=== PATIENT | female | born 2000 | race Caucasian/White ===

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

== ENCOUNTER 2023-01-08 19:03 | Observation (INO) | payer MEDICAID, SELFPAY ==
[2023-01-08] VITALS (13 sets, daily range): BP systolic 87–108; BP diastolic 44–63; PULSE 61–112; RESP 16–18; TEMP 36.1–36.7; O2SAT 98–100; BMI 23.4; BMI 24.3
[2023-01-08] MEDS: 0.9% Normal Saline 1,000 ML 999 ML IV ×2 (19:24→20:42)
[2023-01-08 19:36] LABS: Hematocrit 30.3 % (37-47); Hemoglobin 10.4 g/dL (12.0-15.0); Mean Corp Hgb Conc 34.3 g/dL (32-36); Mean Corpuscular Hgb 29.5 pg (27.0-32.0); Mean Corpuscular Volume 86.1 fL (81-99); Mean Platelet Vol. 10.3 fl (6.2-12.0); Platelet Count 237 K/mm3 (150-450); RBC Distribution Width CV 12.4 % (11.6-14.6); RBC Distribution Width SD 38.6 fl (35.1-43.9); Red Blood Count 3.52 M/mm3 (4.2-5.4); White Blood Count 13.9 K/mm3 (4.4-11.0)
--- NOTE | 2023-01-08 20:06 | ED.VIS.FEGU ---
HPI HPI - Female History of Present Illness Chief Complaint: Vag Bld, Preg Narrative Narrative: Patient was found to have a miscarriage, she was about 10 weeks , she was given Cytotec by OB, she took her first dose around 11 AM and has been bleeding since, its now been 8 to 9 hours. She has significant heavy bleeding. She was feeling a pad every 5 minutes. She now has a towel in place. She has minimal abdominal pain. She does feel lightheaded especially when she stands up this is her first . [facility] Medical History Non-smoker Substance abuse Home Medications hydroxyzine HCl 25 mg tablet 25 mg PO TID PRN anxiety or palpitations #20 tabs 09/24/21 [Rx Last Taken Unknown] Allergy/AdvReac Type Severity Reaction Status Date / Time amoxicillin AdvReac Rash Verified 01/08/23 19:07 Penicillins [PCN] AdvReac Rash Verified 01/08/23 19:07 Social History Smoking Status: Current every day smoker tobacco type: e-cigarettes ROS ROS ED ROS Narrative Past medical history: Reviewed Medications: Reviewed Social history: Noncontributory Review of systems: All systems negative except as indicated General: No fever. She does feel lightheaded Cardiovascular: No chest pain Respiratory: No shortness of breath or cough Gastrointestinal: Minimal suprapubic pain Genitourinary: Vaginal bleeding as in HPI Musculoskeletal: Denies myalgias no difficulty with ambulation Skin: No rash Hematologic: No easy bleeding or easy bruising EXAM Physical Exam Narrative Exam Narrative: Physical exam General: Patient is lying in bed. She does not appear in distress she does appear somewhat anxious Head: Normocephalic, Atraumatic Eyes: Conjunctiva slightly pale Neck: Supple, Nontender, No lymphadenopathy Cardiovascular: Regular rate, Regular rhythm Respiratory: No distress, CTA bilaterally Abdomen: Soft, minimal suprapubic pain. : Patient has quite a bit of vaginal bleed she has massive clots even after eliminating all the clots and blood from the vault she has very brisk pooling Back: Nontender, Normal Inspection. Negative for: CVA tenderness Skin: Somewhat pale Const Vital Signs: 01/08/23 19:04 Temperature 98.0 F Temperature Source Temporal Pulse Rate 112 H Respiratory Rate 18 Blood Pressure 99/57 L Blood Pressure Mean 71 Pulse Ox 98 Oxygen Delivery Method Room Air MDM MDM MDM Narrative Medical decision making narrative: Patient continues to bleed quite briskly, hemoglobin is 10.4 but I believe this is lower we will repeat it. She is pale and has borderline hypotension and tachycardia I am worried about early hemorrhagic shock. I talked to ASSEMBLY MACHINE FEEDER patient will be transfused and taken to the operating room for D&C. I talked to her cousin who is in the room giving some history. At this time there is no need for imaging, there is an outpatient ultrasound which showed demise. No need for RhoGAM she has a positive. Lab Data Labs: Laboratory Results - last 24 hr 01/08/23 01/08/23 19:26 19:26 WBC 13.9 H RBC 3.52 L Hgb 10.4 L Hct 30.3 L MCV 86.1 MCH 29.5 MCHC 34.3 RDW Std Deviation 38.6 RDW Coeff of Shemar 12.4 Plt Count 237 MPV 10.3 Blood Type A POSITIVE Antibody Screen NEGATIVE Critical Care Time Critical care time (excluding procedures): 30-74 minutes (Critical care time of 30 minutes. Patient is having hemorrhagic shock, blood products and fluids and frequent monitor), Discussing w/Patient &/or Family/Chief Psychologist, Discussing w/Consultants, Arranging Admission or Transfer and Performing Direct Patient Care at Bedside Discharge Plan Dx/Rx/DC Orders Clinical Impression: Vaginal bleeding, Hypovolemic shock, Miscarriage Disposition Disposition: Acute Care Hospital [facility]
[2023-01-08 20:37] LABS: Hematocrit 25.7 % (37-47); Hemoglobin 8.6 g/dL (12.0-15.0)
--- NOTE | 2023-01-08 21:11 | HP.PCM.OB_ITS ---
History and Physical Date of Admission: 01/08/23 Chief complaint: Vaginal bleeding History present illness: 22-year-old arrives to ER with heavy vaginal bleeding after taking Cytotec at home today. Patient feels weakness and dizziness, feels like she is going to pass out. Denies chest pain, shortness of breath. Obstetric history: G1: Current SAB Past medical history: None Medications: None Allergies: Penicillin, amoxicillin Past surgical history: None Family history: Denies his DVT or PE Review of systems: Besides above pertinent positives a full review of systems was performed and found to be negative Physical exam: Vitals: Blood pressure 92/49 pulse 71 respiratory rate 18 temperature 98 Fahrenheit SPO2 100% on nonrebreather mask 15 L/min General: Pale, appears weak HEENT: Normocephalic/atraumatic no cervical of adenopathy Cardiac/respiratory: No successor muscles, nonlabored breathing Abdomen: Soft, nontender, nondistended Pelvic exam: Patient's pad with large clot on pad Extremities: No peripheral edema Psych: Normal affect and remainder nonpressured speech Labs: White blood cell count 13.9, initial hemoglobin 10.4 repeat check in 1 hour later 8.6. Blood type a positive antibody negative Assessment and plan: 22-year-old called by ER physician with heavy bleeding at home after taking Cytotec at 11 AM this morning for SAB, with 1 pad every 10 to 15 minutes. Exam by ER physician noted to have copious amounts of active bleeding. Instructed ER physician to order 2 units packed red blood cells to be transfused now and continue IV fluid hydration. I called nursing cement or concrete finishing supervisor informed me that anesthesia and surgical team currently in OR with major case, nursing cement or concrete finishing supervisor connected me with anesthesia discussed case with anesthesia and informed them that I will be arriving to the ER for evaluation but findings with acute blood loss anemia and discussed patient's status and need for OR. Anesthesia with emergent case in the OR just started in with in labor and delivery currently does not have staffing for another surgery. Arrived to ER for evaluation patient noted to be pale and states she feels weak also feels like her vision is fuzzy. Instructed nursing to start nonrebreather and bolus second liter of LR, along with call blood bank to follow-up with timing on blood products. Patient felt improved after liter bolus and O2. Exam as above. Educated patient on findings and need for suction dilation curettage, risk benefits alternatives discussed. Patient or stands risk of the procedure include but are not limited to visceral or vascular injury, prolonged hospitalization, blood loss need for transfusion, reoperation. Patient state understanding wish to proceed. All questions answered and consent signed. Arrived to labor and delivery discussed situation with labor and delivery side seam tender who is managing , informed patient and natural labor. Again called anesthesia to inform them and update on labor and delivery and for update on their operative case, informed by anesthesia still with no operative team or anesthesia available. Inform anesthesia they will likely be ready in 45 minutes. Reevaluated patient who feels much improved after LR bolus and O2, nursing was informed that blood products ready and she is going to get blood products. With bleeding limiting visibility for bedside procedure we will continue to transfuse and stabilized patient until operative room ready now that patient's vitals and symptoms improving.
--- NOTE | 2023-01-08 22:15 | POC_PTH ---
PATIENT: ESTRELLITA VEGA LOC: [facility] U#:[id number] AGE/SX: 22/F ROOM: [facility]316 RE01/08/[address]: Dr. Brett Hartley MD : 2000 BED: 1 DIS: 01/09/2023 SPEC #: [id number] RECD: 01/09/23 10:10 STATUS: JOSE LUIS AREVALO #: [id number] FIDELINA: 01/08/23 22:[address]: Brett Hartley DEPT: SURGICAL PATHOLOGY RECD BY: Marion Hermosillo ENTERED: 01/09/23 11:13 SP TYPE: PROD CONC OTHR DR: Dr. Dirk Esparza MD Tissues: Product of conception, NOS Procedures: Surgery Specimen Level IV HEADER OPERATION: Suction dilation and curettage PRE-OP DIAGNOSIS: Vaginal bleeding TISSUE SUBMITTED: Products of conception MICROSCOPIC DIAGNOSIS Products of conception, dilation and curettage: [place]id[place], gestational endometrium and immature chorionic villi (products of conception). LAVONNE:dago 01/13/2023 MICROSCOPIC DESCRIPTION Slides are reviewed. GROSS DESCRIPTION Received in fixative is one container labeled with the patient's name and designated products of conception. The specimen consists of multiple fragments of hemorrhagic soft tissue that in aggregate measure 6.0 x 6.0 x 2.5 cm. tissue is not identified. Nuclear Medicine Technologist tissue is submitted in three cassettes. / LAVONNE:dago 01/09/2023 TC:5 CPT: [id number]
--- NOTE | 2023-01-08 23:10 | OP.PCM_ITS ---
Report of Operation Date of Procedure: 01/08/23 Pre-Operative Diagnosis: Incomplete Post-Operative Diagnosis: Incomplete Surgery/Procedure Performed:: Suction dilation curettage Description of Surgical Findings:: Surgeon: Brett Hartley MD Anesthesia: MAC EBL: 50 cc Urine output: 150 cc IV fluids: 500 cc Complications: None Specimen: Products of conception Findings: Cervix and uterus with large 5 cm clot and products of conception noted. Initial exam revealed cervical os dilated 2 cm. Post procedure bedside ultrasound with thin endometrial stripe. And post procedure monitoring of bleeding noted to be hemostatic. Consent: Patient arrived to ER with heavy vaginal bleeding after taking Cytotec at home for SAB patient elects for suction dilation and curettage for incomplete . Patient understands risk of the procedure include but are not limited to visceral or vascular injury, prolonged hospitalization, blood loss need for transfusion, reoperation. Patient state understanding wish to proceed. All que stions were answered and consent was signed. Procedure: Patient was brought back to the OR where MAC anesthesia was found to be adequate. 200 mg of doxycycline ordered for infection prophylaxis. Patient was prepared and draped in a dorsolithotomy position with yellowfin stirrups. A weighted speculum is placed in the posterior aspect of the vagina and above findings were noted. Using a ring forcep 5 cm clot removed from uterus/cervix. 10 mm curved suction curettage was used under direct visualization. Good hemostasis was noted. Post procedure bedside ultrasound was performed and above findings were noted, thin endometrial stripe. Post procedure monitoring of bleeding performed in the operating room, good hemostasis was noted. All counts were correct x2. Patient tolerated procedure well and was brought to recovery in a stable condition.
[2023-01-09 00:04] VITALS: BP 97/49; PULSE 69; RESP 16; TEMP 36.7; O2SAT 100
[2023-01-09] MEDS: Methylergonovine 0.2 MG/ML Ampul IM (00:33)
[2023-01-09] MEDS: Acetaminophen 500 MG Tablet 1000 MG PO ×2 (00:33→05:16)
[2023-01-09 05:12] VITALS: BP 102/51; PULSE 89; RESP 16; TEMP 36.5; O2SAT 99
[2023-01-09] MEDS: 0.9% Saline Lock 10 ML Syringe IV (05:16)
[2023-01-09] MEDS: Ketorolac 30 MG/ML Syringe IV (05:16)
[2023-01-09 05:49] LABS: Hematocrit 31.5 % (37-47); Hemoglobin 11.1 g/dL (12.0-15.0); Mean Corp Hgb Conc 35.2 g/dL (32-36); Mean Corpuscular Hgb 29.8 pg (27.0-32.0); Mean Corpuscular Volume 84.5 fL (81-99); Platelet Count 189 K/mm3 (150-450); RBC Distribution Width CV 12.7 % (11.6-14.6); RBC Distribution Width SD 38.6 fl (35.1-43.9); Red Blood Count 3.73 M/mm3 (4.2-5.4); White Blood Count 11.2 K/mm3 (4.4-11.0)
[2023-01-09 07:53] VITALS: BP 100/64; PULSE 69; RESP 16; TEMP 37.1; O2SAT 99
[2023-01-09 08:18] VITALS: O2SAT 99
--- NOTE | 2023-01-09 08:30 | DCINST_ITS ---
Discharge Instructions Diet Discharge Diet: No restrictions Activity Discharge Activity: Return to Normal Activity, May Drive, May Shower and - (No tub baths for 2 weeks) May resume sexual activity in: 4-6 weeks Weight Bearing Status: Weight bearing as tolerated Dressing / Incision Call your doctor if your incision/area has: Continuous Slow Oozing and Foul Smelling Discharge Call your doctor if you observe: Fever of 101 or Higher, Shortness of breath and Chest pain Follow Up Care Please Follow Up With: Brett Hartley MD When: 2 weeks post operatively Test Results: Test results from this visit will be discussed in further detail at your follow- up appointment, if applicable. Discharge Plan Admission Admit Date/Time: 01/08/23 22:59 Attending Provider: Brett Hartley Primary Care Provider: Dirk Esparza Discharge Orders/Prescriptions Prescriptions: No Action hydroxyzine HCl 25 mg tablet 25 mg PO TID PRN (Reason: anxiety or palpitations) Qty: 20 0RF Referrals / Follow Up: Dirk Esparza MD [Primary Care Provider] - Disposition Discharge Orders: Discharge Patient (Routine); Ordered 01/09/23 Ordered By: Dr. Brett Hartley
--- NOTE | 2023-01-09 08:30 | PCM.PN.OB ---
Subjective Subjective No overnight complaints. Only bleeding patient has a spotting. Denies dizziness, weakness, chest pain, shortness of breath. Feels much improved Objective Data Objective Data Vital Signs: Vital Signs Temp Pulse Resp BP Pulse Ox O2 Del Method O2 Flow Rate 98.7 F 69 16 100/64 99 Room Air 15 01/09/23 07:53 01/09/23 07:53 01/09/23 07:53 01/09/23 07:53 01/09/23 07:53 01/09/23 07:53 01/08/23 21:39 Oxygen Flow Rate (L/min) 15 Oxygen Delivery Method Room Air Weight: 133 lb 2.547 oz Body Mass Index (BMI) 24.3 Intake & Output: Intake and Output for Last 24 Hours 01/07/23 01/08/23 01/09/23 23:59 23:59 23:59 Intake Total 2670 / 2670 100 / 100 Output Total 150 / 150 700 / 700 Balance 2520 / 2520 -600 / -600 Lab / Micro Data Result Diagrams: 01/09/23 05:25 Labs: Laboratory Results - last 24 hr 01/08/23 19:25: Crossmatch See Detail 01/08/23 19:26: WBC 13.9 H, RBC 3.52 L, Hgb 10.4 L, Hct 30.3 L, MCV 86.1, MCH 29.5, MCHC 34.3, RDW Std Deviation 38.6, RDW Coeff of Shemar 12.4, Plt Count 237, MPV 10.3 01/08/23 19:26: Blood Type A POSITIVE, Antibody Screen NEGATIVE 01/08/23 20:30: Hgb 8.6 L, Hct 25.7 L 01/09/23 05:25: WBC 11.2 H, RBC 3.73 L, Hgb 11.1 L, Hct 31.5 L, MCV 84.5, MCH 29.8, MCHC 35.2, RDW Std Deviation 38.6, RDW Coeff of Shemar 12.7, Plt Count 189, MPV 10.0 Physical Exam Const alert, oriented x3, no apparent distress, average body habitus, healthy appearing and well nourished HEENT normocephalic and moist oral mucous membranes Eyes PERRL Neck full ROM Resp normal respiratory effort, no retractions and no use of accessory muscles GI GI Narrative: Soft, nontender, nondistended Extremity normal to inspection and full ROM Neuro moves all extremities and no focal motor deficits Psych mental status grossly normal, affect normal, speech normal and activity/motor behavior normal Assessment & Plan (1) Miscarriage: PLAN: Postop day 1 status post suction dilation curettage with incomplete . Status post units packed red blood cells minimal bleeding this morning vital signs stable patient feeling much improved now asymptomatic and hemoglobin stable. Patient ambulating with ease, pain well controlled. Okay to discharge home today, educated patient on expectations on home-going restrictions
== END 2023-01-09 11:00 | disposition home or self-care (01) ==
LOC: ED 20:26 → SDC 20:55 → AC 20:56 → SDC 22:40 → MS3 23:12
PROVIDERS: Admitting Provider Obstetrics & Gynecology; Emergency Provider Emergency Medicine; PCP Pediatrics; Referring Provider Obstetrics & Gynecology; Visit Provider Obstetrics & Gynecology
PROC: (CPT 59812; principal; 2023-01-08 22:00)
DX: O03.4 Incomplete spontaneous abortion without complication (principal); R57.1 Hypovolemic shock; Z3A.10 10 weeks gestation of pregnancy; F17.290 Nicotine dependence, other tobacco product, uncomplicated; D62 Acute posthemorrhagic anemia; O99.331 Smoking (tobacco) complicating pregnancy, first trimester
CPT/HCPCS: 59812; 36415; 36430; 85014; 85018; 85027; 86850; 86900; 86901; 86920; 88305; 94668; 96361; 96372; 96374; 99221; 99252; 99285; J7030; J7040; P9016; A4216; G0378; G0463; J2405

== ENCOUNTER 2024-01-09 20:30 | Outpatient (CLI) | payer MEDICAID, SELFPAY ==
[2024-01-09 20:43] VITALS: RESP 16; TEMP 36.2
[2024-01-09 20:47] VITALS: PULSE 93; O2SAT 97
[2024-01-09 20:50] VITALS: BP 109/63; PULSE 94; RESP 18; TEMP 36.3
[2024-01-09 20:52] VITALS: PULSE 97; O2SAT 97
[2024-01-09 20:58] VITALS: PULSE 93; O2SAT 98
[2024-01-09 20:59] VITALS: BMI 29.5
--- NOTE | 2024-01-10 10:30 | OB.TRI.HP_ITS ---
HPI - General General Date of Admission: 01/09/24 Date of Service: 01/09/24 Chief Complaint: decreased FM HPI Narrative ESTRELLITA VEGA, is a 23 F who presents c/o decreased FM for several days. Called synchronous motor assembler line and was instructed to come in for evaluation. Maternal Data Information Final ERIN: 05/04/24 Gestational age: 23 37 PFSH PFS Medical History Non-smoker Substance abuse Home Medications ?Medication ?Instructions ?Recorded ?Last Taken ?Type aripiprazole 2 mg tablet mg PO DAILY anxiety 01/09/24 01/08/24 History fluoxetine PO DAILY 01/09/24 01/08/24 History vit no.95-ferrous 1 tab PO DAILY 01/09/24 01/08/24 History fumarate 28 mg-folic acid 800 mcg tablet () Allergy/AdvReac Type Severity Reaction Status Date / Time amoxicillin AdvReac Rash Verified 01/09/24 21:00 Penicillins (PCN) AdvReac Rash Verified 01/09/24 21:00 Social History Smoking Status: Current every day smoker tobacco type: e-cigarettes NST FHR Rate Baby A Baseline: 140 Uterine Activity:: none Assessment & Plan (1) Decreased movement affecting management of in second trimester: QUALIFIERS: Fetus number: single or unspecified fetus Qualified Code(s): O36.8120 - Decreased movements, second trimester, not applicable or unspecified PLAN: Patient presents at 23-3/7 weeks with complaint of decreased movement. heart tones were dopplered, nursing reported that they heard frequent movements. Patient felt some of the movements but not all of them. Patient was reassured. DC'd home with routine instructions and follow-up in the office as scheduled or as needed. (2) High-risk in second trimester:
== END 2024-01-09 21:30 | disposition home or self-care (01) ==
LOC: WPOUT 20:34 → WP 20:35
PROVIDERS: PCP Pediatrics; Referring Provider Obstetrics & Gynecology; Visit Provider Obstetrics & Gynecology
DX: O36.8120 Decreased fetal movements, second trimester, not applicable or unspecified (principal); O99.332 Smoking (tobacco) complicating pregnancy, second trimester; F17.290 Nicotine dependence, other tobacco product, uncomplicated; Z3A.23 23 weeks gestation of pregnancy
CPT/HCPCS: 59050; 99221; G0378

== ENCOUNTER 2024-02-11 19:10 | Outpatient (CLI) | payer MEDICAID, SELFPAY ==
--- NOTE | 2024-02-11 19:23 | OB.TRI.HP_ITS ---
HPI - General HPI Narrative ESTRELLITA VEGA, is a at 28 weeks gestation who presents with decreased movement. Patient reported she called office earlier and was told to lay down and count movements. She thinks she felt something but nothing further. [facility] Medical History Non-smoker Substance abuse Home Medications ?Medication ?Instructions ?Recorded ?Last Taken ?Type aripiprazole 2 mg tablet mg PO DAILY anxiety 01/09/24 01/08/24 History fluoxetine PO DAILY 01/09/24 01/08/24 History vit no.95-ferrous 1 tab PO DAILY 01/09/24 01/08/24 History fumarate 28 mg-folic acid 800 mcg tablet () Allergy/AdvReac Type Severity Reaction Status Date / Time amoxicillin AdvReac Rash Verified 02/11/24 19:50 Penicillins (PCN) AdvReac Rash Verified 02/11/24 19:50 Social History Smoking Status: Current every day smoker tobacco type: e-cigarettes ROS Eyes Eyes: Denies blurry vision Cardiovascular Cardiovascular: Reports none; Denies chest pain at rest, chest pain with activity or dizziness Respiratory/Chest Respiratory/Chest: Denies cough or dyspnea Gastrointestinal Gastrointestinal: Reports none and other; Denies diarrhea or vomiting Genitourinary Genitourinary: Denies dysuria Musculoskeletal Musculoskeletal: Reports none Integumentary Integumentary: Reports none; Denies rash Neurologic Neurologic: Denies dizziness, headache(s) or other visual disturbances Psychiatric Psychiatric: Reports none Physical Exam Const alert and no apparent distress General Appearance: cooperative Orientation / Consciousness: awake Exam Limitations: no limitations HEENT normocephalic Eyes General Eye: normal appearance of both eyes Neck full ROM Chest inspection of chest normal Resp normal respiratory effort and normal air movement Effort and Inspection: symmetric chest movement Auscultation: clear to auscultation bilaterally Cardio regular rate GI soft to palpation, non-tender and non-distended Inspection: and other Back/Spine normal ROM Extremity full ROM, normal capillary refill and no calf tenderness Skin no rashes or lesions noted Neuro oriented x3 and CN's II-XII intact bilaterally Psych mental status grossly normal NST FHR Rate Baby A Baseline: 140 Variability:: Moderate Accelerations:: 10 x 10 Decelerations:: None NST Reactive:: Appropriate for gestational age Uterine Activity:: None Assessment & Plan (1) Decreased movement: (2) 28 weeks gestation of : PLAN: Plan Patient began feeling movement once placed on EFM NST reactive for gestational age No contractions D/C home with follow up in office kick counts reviewed
[2024-02-11 19:42] VITALS: PULSE 97; O2SAT 97
[2024-02-11 19:44] VITALS: BP 101/58; PULSE 90
[2024-02-11 19:52] VITALS: BMI 30.7
== END 2024-02-11 20:15 | disposition home or self-care (01) ==
LOC: WPOUT 19:12 → WP 19:13
PROVIDERS: PCP Pediatrics; Referring Provider Advanced Practice Midwife; Visit Provider Advanced Practice Midwife
DX: O36.8130 Decreased fetal movements, third trimester, not applicable or unspecified (principal); Z3A.28 28 weeks gestation of pregnancy
CPT/HCPCS: 59025; 59050; 99221; G0378

== ENCOUNTER 2024-02-17 01:43 | Outpatient (CLI) | payer MEDICAID, SELFPAY ==
[2024-02-17 01:54] VITALS: BMI 31.4
[2024-02-17 01:59] VITALS: BP 118/62; PULSE 97; RESP 16; TEMP 36.6
[2024-02-17 02:00] VITALS: PULSE 95; O2SAT 98
--- NOTE | 2024-03-01 12:25 | OB.TRI.NOTE ---
HPI - General General Date of Service: 02/17/24 HPI Narrative ESTRELLITA VEGA, is a 24 F who presents with decreased FM. Maternal Data Information Final ERIN: 05/04/24 Gestational age: 29 weeks [facility] Medical History Non-smoker Substance abuse Home Medications ?Medication ?Instructions ?Recorded ?Last Taken ?Type aripiprazole 2 mg tablet 2 mg PO DAILY anxiety 01/09/24 02/16/24 History fluoxetine PO DAILY 01/09/24 02/16/24 History vit no.95-ferrous 1 tab PO DAILY 01/09/24 02/16/24 History fumarate 28 mg-folic acid 800 mcg tablet () Allergy/AdvReac Type Severity Reaction Status Date / Time amoxicillin AdvReac Rash Verified 02/17/24 01:59 Penicillins (PCN) AdvReac Rash Verified 02/17/24 01:59 Social History Smoking Status: Current every day smoker tobacco type: e-cigarettes NST FHR Rate Baby A Baseline: 130 Variability:: Moderate Accelerations:: 15 x 15 Decelerations:: Variable NST Reactive:: Yes Uterine Activity:: quiet Assessment & Plan (1) Decreased movement: QUALIFIERS: Fetus number: single or unspecified fetus Trimester: third trimester Qualified Code(s): O36.8130 - Decreased movements, third trimester, not applicable or unspecified PLAN: Plan Reactive NST
== END 2024-02-17 02:45 | disposition home or self-care (01) ==
LOC: WPOUT 01:47 → WP 01:51
PROVIDERS: PCP Pediatrics; Referring Provider Obstetrics & Gynecology; Visit Provider Obstetrics & Gynecology
DX: O36.8130 Decreased fetal movements, third trimester, not applicable or unspecified (principal); Z3A.29 29 weeks gestation of pregnancy; Z79.899 Other long term (current) drug therapy; F17.290 Nicotine dependence, other tobacco product, uncomplicated; O99.333 Smoking (tobacco) complicating pregnancy, third trimester
CPT/HCPCS: 59025; 59050; 99221; G0378

== ENCOUNTER 2024-03-09 17:45 | Outpatient (CLI) | payer MEDICAID, SELFPAY ==
[2024-03-09 18:08] VITALS: BMI 32.3
[2024-03-09 18:10] VITALS: BP 102/59; PULSE 90; PULSE 92; RESP 16; TEMP 37.3; O2SAT 97
--- NOTE | 2024-03-09 20:15 | OB.TRI.NOTE ---
HPI - General General Date of Admission: 03/09/24 Date of Service: 03/09/24 Chief Complaint: dizziness HPI Narrative ESTRELLITA VEGA, is a 24 F who presents at 32 weeks gestation complaining of some intermittent shortness of breath, visual changes with some lights in her vision, cramping and mild intermittent headache. She states the symptoms have been waxing and waning over the past 2 weeks. She feels short of breath when she is exerting herself or even sometimes at rest. She denies any palpitations. She denies any significant chest pain. She denies any regular contractions. She denies any nausea vomiting or diarrhea. Maternal Data Information Final ERIN: 04/03/24 Gestational age: 32 PFSH [facility] Medical History Non-smoker Substance abuse Home Medications ?Medication ?Instructions ?Recorded ?Last Taken ?Type aripiprazole 2 mg tablet 2 mg PO DAILY anxiety 01/09/24 03/08/24 21:00 History 2 mg fluoxetine 10 mg PO DAILY 01/09/24 03/08/24 21:00 History 10mg vit no.95-ferrous 1 tab PO DAILY 01/09/24 03/08/24 21:00 History fumarate 28 mg-folic acid 800 mcg 1 TAB tablet () ferrous sulfate 325 mg (65 mg 325 mg PO DAILY 03/09/24 03/08/24 21:00 History iron) tablet (FeroSul) 325 mg Allergy/AdvReac Type Severity Reaction Status Date / Time amoxicillin AdvReac Rash Verified 03/09/24 18:04 Penicillins (PCN) AdvReac Rash Verified 03/09/24 18:04 Social History Smoking Status: Current every day smoker tobacco type: e-cigarettes Physical Exam Narrative Patient is awake, alert, no acute distress, lying fairly flat and comfortably in bed. Breathing easily. Skin is normal color, warm dry and intact Abdomen soft, nondistended, nontender, gravid, size appropriate for gestational age, no rebound or guarding, no hernias Lungs clear to auscultation bilaterally Heart regular rate and rhythm ext- No C-C-E NST FHR Rate Baby A Baseline: 130 Variability:: Moderate Accelerations:: 15 x 15 Decelerations:: None NST Reactive:: Yes FHR Category:: Category I Uterine Activity:: no regular ctxs Assessment & Plan (1) 32 weeks gestation of : PLAN: High risk Mishaolle parous with nonspecific symptoms. Sent to labor and delivery from the office because she contacted the office later in the day complaining of possible chest pain. Patient is very comfortable in the bed tonight. Vitals are stable, heart is regular rate and rhythm, lungs are clear pulse ox is normal. Extremities are normal. Abdomen is soft and nontender. No evidence of labor. Reassured normal symptoms. Intermittent mild headaches can be treated with routine pain control measures. The spots in her vision may be from low blood pressure. Encouraged to push fluids, keep her feet up and consider compression stockings if needed. Rise slowly. Follow-up in the office as scheduled. Return if fevers, chills, acute shortness of breath, palpitations or other concerns.
== END 2024-03-09 19:20 | disposition home or self-care (01) ==
LOC: WPOUT 17:50 → WP 17:51
PROVIDERS: PCP Pediatrics; Referring Provider Obstetrics & Gynecology; Visit Provider Obstetrics & Gynecology
DX: O99.891 Other specified diseases and conditions complicating pregnancy (principal); O99.333 Smoking (tobacco) complicating pregnancy, third trimester; F17.290 Nicotine dependence, other tobacco product, uncomplicated; Z3A.32 32 weeks gestation of pregnancy; R06.02 Shortness of breath; H53.9 Unspecified visual disturbance; R51.9 Headache, unspecified; R25.2 Cramp and spasm
CPT/HCPCS: 59025; 59050; 99221; G0378

== ENCOUNTER 2024-03-17 02:36 | Outpatient (CLI) | payer MEDICAID, SELFPAY ==
[2024-03-17 02:55] VITALS: BP 110/66; PULSE 104; RESP 16; TEMP 36.7
[2024-03-17 03:00] VITALS: BMI 32.3
[2024-03-17 03:21] LABS: Color, Urine Yellow (Yellow); Glucose, Dipstick Normal (Normal); Ketone-Dipstick 50 mg/dl (Negative); Leukocyte Esterase-Dipstick 25 /ul (Negative); Nitrite-Dipstick Negative (Negative); Occult Blood-Urine Negative /ul (Negative); Protein-Dipstick 30 mg/dl (Negative); Specific Gravity, Urine 1.025 (1.002-1.030); Urine Clarity Clear (Clear); Urine Urobilinogen 4 mg/dl (Normal)
[2024-03-17 03:38] LABS: ROM Internal Control Test YES-OK TO RESULT pt. (Internal QC); ROM Patient Test Negative (Negative); Record Kit Lot#, ROM+ K1866
[2024-03-17 03:39] LABS: Urine Bilirubin Dipstick 1 mg/dL (Negative)
[2024-03-17] MEDS: Lactated Ringers 1,000 ML 999 ML IV (04:30)
--- NOTE | 2024-03-17 06:46 | OB.TRI.NOTE ---
HPI - General HPI Narrative ESTRELLITA VEGA, is a 24 F at 33.1 who presents to triage with leaking of fluid, nausea, and emesis. Patient reports underwear has been damp since earlier this evening. She denies any vaginal bleeding or contractions. Positive movement. [facility] Medical History (Updated 03/17/24 @ 06:51 by Domi Daniels CNM) Anemia ADHD Depression Anxiety Bipolar 2 disorder Current every day vaping GDM (gestational diabetes mellitus) Vapes nicotine containing substance Substance abuse Home Medications ?Medication ?Instructions ?Recorded ?Last Taken ?Type aripiprazole 2 mg tablet 2 mg PO DAILY anxiety 01/09/24 03/16/24 History fluoxetine 10 mg PO DAILY 01/09/24 03/16/24 History vit no.95-ferrous 1 tab PO DAILY 01/09/24 03/16/24 History fumarate 28 mg-folic acid 800 mcg tablet () ferrous sulfate 325 mg (65 mg 325 mg PO DAILY 03/09/24 03/16/24 History iron) tablet (FeroSul) Allergy/AdvReac Type Severity Reaction Status Date / Time amoxicillin AdvReac Rash Verified 03/17/24 03:01 Penicillins (PCN) AdvReac Rash Verified 03/17/24 03:01 Social History Smoking Status: Current every day smoker tobacco type: e-cigarettes ROS Eyes Eyes: Denies blurry vision Cardiovascular Cardiovascular: Reports none; Denies chest pain at rest, chest pain with activity or dizziness Respiratory/Chest Respiratory/Chest: Denies cough or dyspnea Gastrointestinal Gastrointestinal: Reports none and other; Denies diarrhea or vomiting Genitourinary Genitourinary: Denies dysuria Musculoskeletal Musculoskeletal: Reports none Integumentary Integumentary: Reports none; Denies rash Neurologic Neurologic: Denies dizziness, headache(s) or other visual disturbances Psychiatric Psychiatric: Reports none Physical Exam Const alert and no apparent distress General Appearance: cooperative Orientation / Consciousness: awake Exam Limitations: no limitations HEENT normocephalic Eyes General Eye: normal appearance of both eyes Neck full ROM Chest inspection of chest normal Resp normal respiratory effort and normal air movement Effort and Inspection: symmetric chest movement Auscultation: clear to auscultation bilaterally Cardio regular rate GI soft to palpation, non-tender and non-distended Inspection: and other Back/Spine normal ROM Extremity full ROM, normal capillary refill and no calf tenderness Skin no rashes or lesions noted Neuro oriented x3 and CN's II-XII intact bilaterally Psych mental status grossly normal NST FHR Rate Baby A Baseline: 135 Variability:: Moderate Accelerations:: 10 x 10 Decelerations:: None NST Reactive:: Yes Uterine Activity:: none Assessment & Plan (1) 33 weeks gestation of : (2) Nausea: (3) No leakage of amniotic fluid into vagina: (4) Depression: (5) ADHD: (6) Anemia: (7) Bipolar 2 disorder: (8) GDM (gestational diabetes mellitus): PLAN: Plan ROM plus NEGATIVE UA- positive for ketones, bacteria- sent for culture Start IV and give 1000 cc fluid bolus Zofran 4 mg IV PRN D/C home with follow up in office Patient feeling much better since fluids
== END 2024-03-17 05:40 | disposition home or self-care (01) ==
LOC: WPOUT 02:41 → WP 02:42
PROVIDERS: PCP Pediatrics; Referring Provider Advanced Practice Midwife; Visit Provider Advanced Practice Midwife
DX: Z03.71 Encounter for suspected problem with amniotic cavity and membrane ruled out (principal); F31.9 Bipolar disorder, unspecified; F41.9 Anxiety disorder, unspecified; F17.290 Nicotine dependence, other tobacco product, uncomplicated; O99.343 Other mental disorders complicating pregnancy, third trimester; F90.9 Attention-deficit hyperactivity disorder, unspecified type; Z3A.33 33 weeks gestation of pregnancy; O99.013 Anemia complicating pregnancy, third trimester; O24.419 Gestational diabetes mellitus in pregnancy, unspecified control; O21.9 Vomiting of pregnancy, unspecified; O99.333 Smoking (tobacco) complicating pregnancy, third trimester; O99.891 Other specified diseases and conditions complicating pregnancy; D64.9 Anemia, unspecified
CPT/HCPCS: 96360; 59025; 59050; 81002; 84112; 87086; 87088; 99221; J7120; G0378

== ENCOUNTER 2024-03-31 16:58 | Emergency (ER) | payer MEDICAID, SELFPAY ==
[2024-03-31 17:00] VITALS: BP 101/64; PULSE 89; RESP 18; TEMP 36.1; O2SAT 99; BMI 33.7
--- NOTE | 2024-03-31 17:13 | EDS_ITS ---
HPI History of Present Illness Chief Complaint: Syncope Detail of Chief Complaint: Near syncope. Informant: patient Onset/Context/Timing Onset: Today Current Severity: Mild Maximum Severity: Mild Narrative Narrative: 24-year-old female G2, P0 Ab1 with that being a prior miscarriage. Currently 35 weeks . Under the care of the [facility]. Due date is 918. She has had some nausea vomiting and diarrhea. Denies any vaginal bleeding or pelvic pain. No dysuria. No fever. Today had a near syncopal event. Denies any actual loss conscious. No chest pain or shortness of breath. Prior similar symptoms: Yes Recent Illness/Hospitalization: No PFSH PFSH Medical History Anemia ADHD Depression Anxiety Bipolar 2 disorder Current every day vaping GDM (gestational diabetes mellitus) Vapes nicotine containing substance Substance abuse Home Medications ?Medication ?Instructions ?Recorded ?Last Taken ?Type aripiprazole 2 mg tablet 2 mg PO DAILY anxiety 01/09/24 03/16/24 History fluoxetine 10 mg PO DAILY 01/09/24 03/16/24 History vit no.95-ferrous 1 tab PO DAILY 01/09/24 03/16/24 History fumarate 28 mg-folic acid 800 mcg tablet () ferrous sulfate 325 mg (65 mg 325 mg PO DAILY 03/09/24 03/16/24 History iron) tablet (FeroSul) ondansetron 4 mg disintegrating 4 mg PO Q6H PRN nausea and 03/31/24 Unknown Rx tablet vomiting #10 tabs Allergy/AdvReac Type Severity Reaction Status Date / Time amoxicillin AdvReac Rash Verified 03/31/24 17:00 Penicillins (PCN) AdvReac Rash Verified 03/31/24 17:00 Social History Smoking Status: Current every day smoker tobacco type: e-cigarettes ROS ROS ED ROS Narrative Nausea, vomiting and diarrhea. Constitutional Constitutional ED: Denies chills or fever(s) Eyes Eyes: Denies blurry vision ENT ENT ED: Denies ear pain Cardiovascular Cardiovascular: Denies chest pain Respiratory/Chest Respiratory/Chest: Denies cough or dyspnea Gastrointestinal Gastrointestinal: Reports diarrhea, nausea and vomiting; Denies abdominal pain, constipation or melena Genitourinary Genitourinary ED: Denies dysuria or hematuria Musculoskeletal Musculoskeletal: Denies arthralgias Integumentary Denies abscess Neurologic Neurologic: Denies headache(s) Psychiatric Psychiatric: Denies anxiety or depression Endocrine Endocrinology: Denies cold intolerance Hematologic/Lymphatic Hematologic/Lymphatic: Reports none Allergic/Immunologic Allergic/Immunologic ED: Denies mouth swelling, tongue swelling or urticaria EXAM Physical Exam Narrative Exam Narrative: Well-appearing 24-year-old female. Vital signs are stable afebrile. Pulse ox 99% on room air no signs hypoxia. H EENT exam unremarkable other mildly dry mucous members. Neck nontender no lymphadenopathy. Lungs clear to auscultation bilaterally. Heart regular rhythm rate about 90 no murmur. Chest wall ribs n ontender. Abdomen soft, gravid uterus. Nontender. Without peritoneal signs. Moving all 4 extremities. Nontender no edema. Neurologically she is awake and alert no focal motor deficits. Back nontender. Const Vital Signs: 03/31/24 17:00 03/31/24 17:16 03/31/24 17:17 Temperature 97 F L Temperature Source Temporal Pulse Rate 89 82 Respiratory Rate 18 26 H Respiratory Effort Normal Non-Labored Respiratory Pattern Normal Blood Pressure 101/64 106/58 L Blood Pressure Mean 76 74 Pulse Ox 99 98 Oxygen Delivery Method Room Air Blow-by Positive well nourished and well developed; Negative for cachectic, contractures or unkempt General Appearance ED: well developed and NAD; Negative for unkempt, cachectic, contractures, cyanotic, diaphoretic or pallor Nutritional Appearance: Negative for cachectic HEENT Reports dry mucous membranes; Denies moist mucous membranes Negative for trauma or tenderness Mouth ED: Yes dry mucous membranes Mouth: dry mucous membranes Eyes PERRL and EOMs intact bilaterally General Eye ED: Negative for pale conjunctiva or scleral icterus Neck no lymphadenopathy, supple and no JVD General: Negative for tenderness Lymph Lymphatic: Negative for other Chest Wall inspection of chest normal and palpation of chest normal Chest: Negative for other Resp normal respiratory effort and clear to auscultation bilaterally Effort and Inspection: Negative for retractions or pain with movement Auscultation: Negative for rales, rhonchi, wheezes or diminished lung sounds Cardio regular rate, regular rhythm, S1 normal heart sound, S2 normal heart sound and no murmurs Palpation: Negative for palpable S3 or palpable S4 Rate: Negative for bradycardia or tachycardic Rhythm: Negative for abnormal rhythm GI normal to inspection, nondistended, normoactive bowel sounds, non-tender, non- distended and no masses GI Narrative: Gravid nontender uterus. Palpation: soft; Negative for tender, guarding or rebound tenderness present Back/Spine no CVA tenderness Extremity normal to inspection General Extremety ED: Negative for edema or tenderness General Extremity: Negative for edema Neuro oriented x3 and CN's II-XII intact bilaterally Sensorium / Orientation: alert; Negative for orientation impaired, lethargic or stuporous Motor Exam: strength 5/5 throughout Psych mental status grossly normal Appearance: Negative for unkempt Attitude: No agitated Mood & Affect: Negative for depressed, anxious or tearful Skin no rashes or lesions noted and no wounds General Skin Exam: Negative for jaundice or pallor Lesions: No lesion noted Rashes: No rashes noted Trauma: Negative for abrasion Wounds: Negative for wounds noted MDM MDM MDM Narrative Medical decision making narrative: 24-year-old female 35 weeks with nausea vomiting and diarrhea. Near syncope. Most likely secondary to mild dehydration. Screening labs. IV fluids. IV Zofran for nausea. heart tones and a UA. Exam is benign. Repeat exam patient doing well at 6 PM. She has received a liter of fluid. Her standing blood pressure was the same as her lying blood pressure. She will be discharged home with outpatient follow-up. History & Record Review Discussion w/independent historian: Patient Additional record(s) reviewed:: Prior inpatient record, Prior outpatient record, Prior ED visit and Prior labs Lab Data Attestation: I reviewed the patient's lab results. Lab results narrative: CBC shows a white count of 8. H&H 10.7 and 32.2. Consistent with anemia of . Platelets 182. Electrolytes show gap 8. Normal BUN and creatinine. Twelve 0.8. Glucose 91. Urinalysis shows no nitrites. 5-10 white cells but is contaminated with 10-25 epithelial cells. 3+ bacteria. Will not be treated. She is having no urinary symptoms. heart tones were 148. Labs: Laboratory Results - last 24 hr 03/31/24 17:29 WBC 8.3 RBC 3.80 L Hgb 10.7 L Hct 32.2 L MCV 84.7 MCH 28.2 MCHC 33.2 RDW Std Deviation 43.8 RDW Coeff of Shemar 14.1 Plt Count 182 MPV 12.3 H Immature Gran % (Auto) 0.400 Neut % (Auto) 76.4 H Lymph % (Auto) 14.5 L [place] % (Auto) 7.9 Eos % (Auto) 0.6 Baso % (Auto) 0.2 Absolute Neuts (auto) 6.4 Absolute Lymphs (auto) 1.21 Nucleated RBC % 0 Sodium 138 Potassium 4.1 Chloride 108 H Carbon Dioxide 22.0 Anion Gap 8 BUN 12 Creatinine 0.84 Estim Creat Clear Calc 105.28 Est GFR (MDRD) Af Amer 109 Est GFR (MDRD) Non-Af 90 BUN/Creatinine Ratio 14.3 Glucose 91 Calcium 8.5 Urine Color Yellow Urine Clarity Cloudy Urine pH 6.0 Ur Specific [place] 1.025 Urine Protein 15 H Urine Glucose (UA) Normal Urine Ketones Negative Urine Occult Blood Negative Urine Nitrite Negative Urine Bilirubin Negative Urine Urobilinogen 1 H Ur Leukocyte Esterase 500 H Urine RBC 0 SEEN Urine WBC 5-10 SEEN Ur Squamous Epith Cells 10-25 SEEN Calcium Oxalate Crystal 1+ Urine Bacteria 3+ Urine Mucus 2+ Discharge Plan Triage Chief Complaint: Syncope ED Provider: Jac Kiran Dx/Rx/DC Orders Clinical Impression: Third trimester , Near syncope, Nausea, vomiting, and diarrhea Instructions: ED Vomit Diarrhea Nonspec Adult Prescriptions: New ondansetron 4 mg tablet,disintegrating 4 mg PO Q6H PRN (Reason: nausea and vomiting) Qty: 10 0RF No Action fluoxetine [Prozac] 10 mg PO DAILY aripiprazole 2 mg tablet 2 mg PO DAILY Patient Comments: TAKE 1 TABLET BY MOUTH EVERYDAY AT BEDTIME PNV cmb#95-ferrous fumarate-FA [] 28 mg iron- 800 mcg tablet 1 tab PO DAILY ferrous sulfate [FeroSul] 325 mg (65 mg iron) tablet 325 mg PO DAILY Primary Care Provider: Care Physician,No Primary Referrals: Poornima Liang MD [Med Staff - Active Staff] - As Needed Dirk Esparza MD [Non-Staff] - Activity Restrictions/Additional Instructions: Plenty of fluids and rest. Zofran as needed for nausea. Follow-up with your [facility] doctors. Print Language: Malay Disposition Disposition: Home, Self Care
[2024-03-31 17:16] VITALS: BP 106/58; PULSE 82; RESP 26; O2SAT 98
[2024-03-31] MEDS: 0.9% Normal Saline (1000mL) 1,000 ML 1000 ML IV (17:24)
[2024-03-31] MEDS: Ondansetron 4 MG/2 ML Vial IV (17:24)
[2024-03-31 17:36] LABS: Red Blood Cells-Urine 0 SEEN /hpf (0-5)
[2024-03-31 17:37] LABS: Absolute Lymphocyte Count 1.21 X10^3/uL (0.83-4.51); Absolute Neutrophil Count 6.4 X10^3/uL (2.0-7.7); Basophil# 0.02 X10^3/uL; Basophil% 0.2 % (0-1); Eosinophil# 0.05 X10^3/uL; Eosinophils% 0.6 % (0-5); Hematocrit 32.2 % (37-47); Hemoglobin 10.7 g/dL (12.0-15.0); Lymphocyte # 1.21 X10^3/ul (0.83-4.51); Lymphocyte % 14.5 % (19-41); Mean Corp Hgb Conc 33.2 g/dL (32-36); Mean Corpuscular Hgb 28.2 pg (27.0-32.0); Mean Corpuscular Volume 84.7 fL (81-99); Mean Platelet Vol. 12.3 fl (6.2-12.0); Monocyte# 0.66 X10^3/uL; Monocyte% 7.9 % (0-10); NRBC Flagged by Analyzer 0 % (0-5); Neutrophil # 6.36 X10^3/uL (2.7-7.7); Neutrophil % 76.4 % (47-70); Platelet Count 182 K/mm3 (150-450); RBC Distribution Width CV 14.1 % (11.6-14.6); RBC Distribution Width SD 43.8 fl (35.1-43.9); White Blood Count 8.3 K/mm3 (4.4-11.0)
[2024-03-31 17:38] LABS: Color, Urine Yellow (Yellow); Glucose, Dipstick Normal (Normal); Ketone-Dipstick Negative (Negative); Leukocyte Esterase-Dipstick 500 /ul (Negative); Nitrite-Dipstick Negative (Negative); Occult Blood-Urine Negative /ul (Negative); Protein-Dipstick 15 mg/dl (Negative); Specific Gravity, Urine 1.025 (1.002-1.030); Urine Bilirubin Dipstick Negative (Negative); Urine Clarity Cloudy (Clear); Urine Urobilinogen 1 mg/dl (Normal)
[2024-03-31 17:51] LABS: Squamous Epithelial Cells - UA 10-25 SEEN /hpf (5-10)
[2024-03-31 17:52] LABS: Bacteria 3+ /hpf (None Seen); Calcium Oxalate Crystals Ur 1+ /hpf (<or=2+); Mucous, Urine 2+ /hpf (<or=2+); White Blood Cells 5-10 SEEN /hpf (0-5)
[2024-03-31 17:55] LABS: Anion Gap 8 (5-15); BUN 12 mg/dL (7-18); BUN/Creat Ratio 14.3 RATIO (10-20); Calcium,Total 8.5 mg/dL (8.5-10.1); Chloride 108 mmol/L (98-107); Creatinine, Serum 0.84 mg/dL (0.55-1.02); EST Glomerular Filtration Rate 90 mL/min (>60); Est Glom Filt Rate - Afr Amer 109 mL/min (>60); Estimated Creatinine Clearance 105.28 ml/min; Glucose 91 mg/dL (74-106); Potassium 4.1 mmol/L (3.5-5.1); Sodium Level 138 mmol/L (136-145)
[2024-03-31 18:11] VITALS: BP 110/76; PULSE 84; RESP 22; TEMP 36.6; O2SAT 99
== END 2024-03-31 18:11 | disposition home or self-care (01) ==
PROVIDERS: Emergency Provider Emergency Medicine; Visit Provider Emergency Medicine
DX: O99.891 Other specified diseases and conditions complicating pregnancy (principal); O21.9 Vomiting of pregnancy, unspecified; O99.333 Smoking (tobacco) complicating pregnancy, third trimester; R55 Syncope and collapse; F17.290 Nicotine dependence, other tobacco product, uncomplicated; R19.7 Diarrhea, unspecified; Z3A.35 35 weeks gestation of pregnancy
CPT/HCPCS: 80048; 81001; 85025; 96374; 99283; J7030; A4216; J2405

== ENCOUNTER 2024-04-07 22:35 | Outpatient (CLI) | payer MEDICAID, SELFPAY ==
[2024-04-07 22:42] VITALS: BMI 33.7
[2024-04-07 22:50] VITALS: PULSE 82; O2SAT 98
[2024-04-07 22:51] VITALS: TEMP 36.6
[2024-04-07 22:52] VITALS: BP 110/57; PULSE 81
[2024-04-07 22:56] VITALS: RESP 26
--- NOTE | 2024-04-08 06:45 | OB.TRI.HP_ITS ---
HPI - General HPI Narrative ESTRELLITA VEGA, is a 24 F who presents with decreased movement. PFSH PFSH Medical History Anemia ADHD Depression Anxiety Bipolar 2 disorder Current every day vaping GDM (gestational diabetes mellitus) Vapes nicotine containing substance Substance abuse Home Medications ?Medication ?Instructions ?Recorded ?Last Taken ?Type aripiprazole 2 mg tablet 2 mg PO DAILY anxiety 01/09/24 04/06/24 21:00 History fluoxetine 10 mg PO DAILY 01/09/24 04/06/24 21:00 History vit no.95-ferrous 1 tab PO DAILY 01/09/24 04/06/24 21:00 History fumarate 28 mg-folic acid 800 mcg tablet () ferrous sulfate 325 mg (65 mg 325 mg PO DAILY 03/09/24 04/06/24 21:00 History iron) tablet (FeroSul) ondansetron 4 mg disintegrating 4 mg PO Q6H PRN nausea and 03/31/24 04/06/24 21:00 Rx tablet vomiting #10 tabs Allergy/AdvReac Type Severity Reaction Status Date / Time amoxicillin AdvReac Rash Verified 04/07/24 22:54 Penicillins (PCN) AdvReac Rash Verified 04/07/24 22:54 Social History Smoking Status: Current every day smoker tobacco type: e-cigarettes ROS Eyes Eyes: Denies blurry vision Cardiovascular Cardiovascular: Reports none; Denies chest pain at rest, chest pain with activity or dizziness Respiratory/Chest Respiratory/Chest: Denies cough or dyspnea Gastrointestinal Gastrointestinal: Reports none and other; Denies diarrhea or vomiting Genitourinary Genitourinary: Denies dysuria Musculoskeletal Musculoskeletal: Reports none Integumentary Integumentary: Reports none; Denies rash Neurologic Neurologic: Denies dizziness, headache(s) or other visual disturbances Psychiatric Psychiatric: Reports none Physical Exam Const alert and no apparent distress General Appearance: cooperative Orientation / Consciousness: awake Exam Limitations: no limitations HEENT normocephalic Eyes General Eye: normal appearance of both eyes Neck full ROM Chest inspection of chest normal Resp normal respiratory effort and normal air movement Effort and Inspection: symmetric chest movement Auscultation: clear to auscultation bilaterally Cardio regular rate GI soft to palpation, non-tender and non-distended Inspection: and other Back/Spine normal ROM Extremity full ROM, normal capillary refill and no calf tenderness Skin no rashes or lesions noted Neuro oriented x3 and CN's II-XII intact bilaterally Psych mental status grossly normal NST FHR Rate Baby A Baseline: 145 Variability:: Moderate Accelerations:: 15 x 15 Decelerations:: None NST Reactive:: Yes FHR Category:: Category I Uterine Activity:: Occasional Assessment & Plan (1) GDM (gestational diabetes mellitus): (2) Bipolar 2 disorder: (3) Depression: (4) ADHD: (5) Decreased movement affecting management of in second t rimester: QUALIFIERS: Fetus number: single or unspecified fetus Qualified Code(s): O36.8120 - Decreased movements, second trimester, not applicable or unspecified (6) 36 weeks gestation of : PLAN: Plan NST reactive Patient has felt movement since arrival to unit Kick counts reviewed D/C home with follow up in office this week
== END 2024-04-07 23:20 | disposition home or self-care (01) ==
LOC: WPOUT 22:40 → WP 22:41
PROVIDERS: Visit Provider Advanced Practice Midwife
DX: O36.8130 Decreased fetal movements, third trimester, not applicable or unspecified (principal); F31.81 Bipolar II disorder; Z3A.36 36 weeks gestation of pregnancy; O99.343 Other mental disorders complicating pregnancy, third trimester; F90.9 Attention-deficit hyperactivity disorder, unspecified type; O24.419 Gestational diabetes mellitus in pregnancy, unspecified control; F17.290 Nicotine dependence, other tobacco product, uncomplicated; O99.333 Smoking (tobacco) complicating pregnancy, third trimester
CPT/HCPCS: 59025; 59050; 99221; G0378

== ENCOUNTER 2024-04-08 17:25 | Outpatient (CLI) | payer MEDICAID, SELFPAY ==
[2024-04-08 17:34] VITALS: BMI 33.3
[2024-04-08 17:47] VITALS: BP 115/60; PULSE 115; RESP 16; TEMP 36.6; O2SAT 98
--- NOTE | 2024-04-08 18:24 | OB.TRI.NOTE ---
HPI - General General Date of Admission: 04/08/24 Date of Service: 04/08/24 Chief Complaint: leaking fluid HPI Narrative ESTRELLITA VEGA, is a 24 F who presents with 2 gushes of fluid. No contractions. No bleeding. Normal movement Maternal Data Information Final ERIN: 05/04/24 Gestational age: 36+2 PFSH PFSH Medical History Anemia ADHD Depression Anxiety Bipolar 2 disorder Current every day vaping GDM (gestational diabetes mellitus) Vapes nicotine containing substance Substance abuse Home Medications ?Medication ?Instructions ?Recorded ?Last Taken ?Type aripiprazole 2 mg tablet 5 mg PO DAILY anxiety 01/09/24 04/06/24 21:00 History fluoxetine 40 mg PO DAILY 01/09/24 04/06/24 21:00 History vit no.95-ferrous 1 tab PO DAILY 01/09/24 04/06/24 21:00 History fumarate 28 mg-folic acid 800 mcg tablet () ferrous sulfate 325 mg (65 mg 325 mg PO DAILY 03/09/24 04/06/24 21:00 History iron) tablet (FeroSul) ondansetron 4 mg disintegrating 4 mg PO Q6H PRN nausea and 03/31/24 04/06/24 21:00 Rx tablet vomiting #10 tabs Allergy/AdvReac Type Severity Reaction Status Date / Time amoxicillin AdvReac Rash Verified 04/08/24 17:41 Penicillins (PCN) AdvReac Rash Verified 04/08/24 17:41 Social History Smoking Status: Current every day smoker tobacco type: e-cigarettes NST FHR Rate Baby A Baseline: 140 Variability:: Moderate Accelerations:: 15 x 15 NST Reactive:: Yes FHR Category:: Category I Uterine Activity:: quiet Assessment & Plan (1) Suspected rupture of membranes not found for normal first : (2) 36 weeks gestation of : PLAN: Plan follow up as scheduled
[2024-04-08 18:31] LABS: ROM Internal Control Test YES-OK TO RESULT pt. (Internal QC); ROM Patient Test Negative (Negative); Record Kit Lot#, ROM+ K1866
== END 2024-04-08 18:50 | disposition home or self-care (01) ==
LOC: WPOUT 17:31 → WP 17:32
PROVIDERS: Referring Provider Obstetrics & Gynecology; Visit Provider Obstetrics & Gynecology
DX: Z03.71 Encounter for suspected problem with amniotic cavity and membrane ruled out (principal); F31.9 Bipolar disorder, unspecified; O99.343 Other mental disorders complicating pregnancy, third trimester; F90.9 Attention-deficit hyperactivity disorder, unspecified type; F41.9 Anxiety disorder, unspecified; Z79.899 Other long term (current) drug therapy; F17.290 Nicotine dependence, other tobacco product, uncomplicated; O99.333 Smoking (tobacco) complicating pregnancy, third trimester; Z3A.36 36 weeks gestation of pregnancy
CPT/HCPCS: 59025; 59050; 84112; 99221; G0378

== ENCOUNTER 2024-04-27 16:14 | Inpatient (IN) | payer MEDICAID, SELFPAY ==
[2024-04-27] VITALS (28 sets, daily range): BP systolic 107–137; BP diastolic 55–90; PULSE 76–106; RESP 14–16; TEMP 36.4–36.8; O2SAT 93–100; BMI 34.2
[2024-04-27 16:07] LABS: ROM Internal Control Test YES-OK TO RESULT pt. (Internal QC)
[2024-04-27 16:08] LABS: ROM Patient Test POSITIVE (Negative); Record Kit Lot#, ROM+ K1866
[2024-04-27] MEDS: Lactated Ringers 1,000 ML 50 ML IV (16:40)
[2024-04-27 16:59] LABS: Absolute Lymphocyte Count 1.36 X10^3/uL (0.83-4.51); Absolute Neutrophil Count 6.3 X10^3/uL (2.0-7.7); Basophil# 0.03 X10^3/uL; Basophil% 0.4 % (0-1); Eosinophil# 0.05 X10^3/uL; Eosinophils% 0.6 % (0-5); Hematocrit 33.7 % (37-47); Hemoglobin 11.2 g/dL (12.0-15.0); Lymphocyte # 1.36 X10^3/ul (0.83-4.51); Lymphocyte % 16.2 % (19-41); Mean Corp Hgb Conc 33.2 g/dL (32-36); Mean Corpuscular Hgb 27.3 pg (27.0-32.0); Mean Corpuscular Volume 82.2 fL (81-99); Mean Platelet Vol. 12.9 fl (6.2-12.0); Monocyte# 0.64 X10^3/uL; Monocyte% 7.6 % (0-10); NRBC Flagged by Analyzer 0 % (0-5); Neutrophil % 74.8 % (47-70); Platelet Count 167 K/mm3 (150-450); RBC Distribution Width CV 14.5 % (11.6-14.6); RBC Distribution Width SD 43.3 fl (35.1-43.9); White Blood Count 8.4 K/mm3 (4.4-11.0)
[2024-04-27 17:24] LABS: Syphilis Antibodies Non-reactive
[2024-04-27] MEDS: Oxytocin 15 Units/NS 250ml 15 UNITS/250 ML IV.SOLN 2 UNITS IV (18:07)
[2024-04-27] MEDS: Cefazolin 1 GM/50 ML BAG IV (18:21)
[2024-04-27 20:02] LABS: Bedside Glucose 100 mg/dL (74-106)
[2024-04-27 20:57] LABS: Bedside Glucose 75 mg/dL (74-106)
[2024-04-27] MEDS: Lactated Ringers 1,000 ML 999 ML IV (22:40)
--- NOTE | 2024-04-27 23:08 | PCM.HP.OB ---
HPI - General General Date of Admission: 04/27/24 Date of Service: 04/27/24 Chief Complaint: leaking of fluid HPI Narrative ESTRELLITA VEGA, is a 24 F who presents 2 para 0 at 39 weeks gestation presents complaining of spontaneous rupture membranes. She denies any vaginal bleeding. She has had a few contractions. complicated to date by an abnormal Pap smear, vaping nicotine during the , gestational diabetes class A1, anemia and bipolar 2 disorder Maternal Data Information Final ERIN: 05/04/24 Gestational age: 39 0/7 PFSH PFS Medical History (Updated 04/27/24 @ 23:[address] Poornima Liang MD) HPV (human papilloma virus) infection Anemia ADHD Depression Anxiety Bipolar 2 disorder Current every day vaping GDM (gestational diabetes mellitus) Vapes nicotine containing substance Substance abuse Home Medications ?Medication ?Instructions ?Recorded ?Last Taken ?Type aripiprazole 2 mg tablet 5 mg PO DAILY anxiety 01/09/24 04/26/24 History fluoxetine 40 mg PO DAILY anxiet 01/09/24 04/26/24 History vit no.95-ferrous 1 tab PO DAILY prega 01/09/24 04/26/24 History fumarate 28 mg-folic acid 800 mcg tablet () ferrous sulfate 325 mg (65 mg 325 mg PO DAILY 03/09/24 04/26/24 History iron) tablet (FeroSul) Allergy/AdvReac Type Severity Reaction Status Date / Time amoxicillin AdvReac Rash Verified 04/27/24 16:34 Penicillins (PCN) AdvReac Rash Verified 04/27/24 16:34 Social History Smoking Status: Light Smoker (<10/day) History Elective abortions Hx Para 0 Spontaneous abortions Hx # Term Pregnancies Ectopic pregnancies Hx # Pregnancies Multiple births # of living children ROS Constitutional Constitutional: Denies fatigue, fever(s) or malaise Eyes Eyes: Denies change in vision ENT HEENT: Denies dizziness or headache(s) Cardiovascular Cardiovascular: Denies chest pain, dyspnea or lightheadedness Respiratory/Chest Respiratory/Chest: Denies cough or dyspnea Gastrointestinal Gastrointestinal: Denies change in bowel habits Genitourinary Genitourinary: Denies burning urination or genital lesions Integumentary Integumentary: Denies rash Neurologic Neurologic: Denies confusion, dizziness, headache(s), numbness or weakness Vital Signs Vital Signs Vital Signs: 04/27/24 15:35 04/27/24 15:35 04/27/24 15:35 Temperature Temperature Source Pulse Rate 106 H Respiratory Rate Blood Pressure 111/62 BP Systolic 111 BP Diastolic 62 Pulse Ox 94 04/27/24 18:24 04/27/24 18:24 04/27/24 19:21 Temperature Temperature Source Pulse Rate 88 Respiratory Rate Blood Pressure 126/63 H 111/68 BP Systolic 126 111 BP Diastolic 63 68 Pulse Ox 04/27/24 19:21 04/27/24 19:22 04/27/24 19:22 Temperature Temperature Source Pulse Rate 97 96 Respiratory Rate Blood Pressure BP Systolic BP Diastolic Pulse Ox 98 04/27/24 19:22 04/27/24 19:22 04/27/24 19:22 Temperature 97.6 F L Temperature Source Temporal Pulse Rate Respiratory Rate 14 Blood Pressure BP Systolic BP Diastolic Pulse Ox 04/27/24 20:32 04/27/24 20:32 04/27/24 20:32 Temperature Temperature Source Temporal Pulse Rate 83 Respiratory Rate Blood Pressure 110/65 BP Systolic 110 BP Diastolic 65 Pulse Ox 04/27/24 20:32 04/27/24 20:32 04/27/24 21:35 Temperature 98.1 F Temperature Source Temporal Pulse Rate Respiratory Rate 16 Blood Pressure BP Systolic BP Diastolic Pulse Ox 04/27/24 21:35 04/27/24 21:35 04/27/24 21:36 Temperature 97.6 F L Temperature Source Pulse Rate Respiratory Rate 14 Blood Pressure 123/74 H BP Systolic 123 BP Diastolic 74 Pulse Ox 04/27/24 21:36 04/27/24 21:36 04/27/24 22:39 Temperature Temperature Source Temporal Pulse Rate 88 Respiratory Rate Blood Pressure BP Systolic BP Diastolic Pulse Ox 99 04/27/24 22:39 04/27/24 22:39 04/27/24 22:40 Temperature 98.2 F Temperature Source Pulse Rate Respiratory Rate 16 Blood Pressure 117/71 BP Systolic 117 BP Diastolic 71 Pulse Ox 04/27/24 22:40 04/27/24 22:40 Temperature Temperature Source Pulse Rate 87 Respiratory Rate Blood Pressure BP Systolic BP Diastolic Pulse Ox 99 Weight Weight: 84.822 kg Body Mass Index (BMI) 34.2 Physical Exam Const alert and no apparent distress General Appearance: cooperative HEENT normocephalic Resp normal respiratory effort Cardio regular rate GI soft to palpation GI Narrative: gravid, nontender, appropriate for gestational age Extremity no calf tenderness General Extremity: edema Skin no wounds Rashes: No rashes noted Psych activity/motor behavior normal Labs Labs Labs: Blood Type A POSITIVE Antibody Screen NEGATIVE Hct 33.7 % (37-47) L Hgb 11.2 g/dL (12.0-15.0) L Syphilis Total Ab Non-reactive Assessment & Plan (1) 39 weeks gestation of : PLAN: Pitocin induction of labor for premature rupture membranes. Have may have routine pain control measures as needed and indicated. Estimated weight is less than 4500 g and pelvis clinically adequate to expect vaginal delivery. Group B strep positive. Prophylaxis initiated with Ancef. (2) High-risk in third trimester: (3) PROM (premature rupture of membranes):
[2024-04-27] MEDS: fentaNYL-bupivacaine (epidural) 100 ML BAG EPIDURAL (23:42)
[2024-04-28] VITALS (57 sets, daily range): BP systolic 101–141; BP diastolic 51–89; PULSE 68–95; RESP 14–18; TEMP 36.1–37; O2SAT 95–100
[2024-04-28 00:59] LABS: Bedside Glucose 80 mg/dL (74-106)
[2024-04-28 01:57] LABS: Bedside Glucose 84 mg/dL (74-106)
[2024-04-28] MEDS: LACTATED RINGERS 500 ML 999 ML IV (02:50)
[2024-04-28] MEDS: Cefazolin 1 GM/50 ML BAG IV (03:20)
[2024-04-28] MEDS: fentaNYL-bupivacaine (epidural) 100 ML BAG EPIDURAL (03:45)
[2024-04-28 03:52] LABS: Bedside Glucose 80 mg/dL (74-106)
[2024-04-28 04:36] LABS: Bedside Glucose 77 mg/dL (74-106)
[2024-04-28] MEDS: Lactated Ringers 1,000 ML 200 ML IV (04:38)
[2024-04-28 05:20] LABS: Bedside Glucose 81 mg/dL (74-106)
[2024-04-28] MEDS: Methylergonovine 0.2 MG/ML Ampul IM (06:11)
--- NOTE | 2024-04-28 06:22 | OP.PCM_ITS ---
Assessment & Plan (1) Vacuum-assisted vaginal delivery: (2) Shoulder dystocia during labor and delivery: (3) Single live : (4) 39 weeks gestation of : (5) GDM (gestational diabetes mellitus): Maternal Data Information Final ERIN: 05/04/24 Gestational age: 39 1/7 Vaginal Delivery Maternal Presentation Maternal Presentation: Spontaneous Rupture of Membranes Type of Induction: Pitocin Operative Information Date of Procedure: 04/28/24 Pre-Operative Diagnosis: maternal exhaustion, labor Post-Operative Diagnosis: same Surgery / Procedure Performed: Vacuum Assisted Vaginal Delivery Type of Anesthesia: Epidural Drain: Dewitt to straight drain Estimated Blood Loss: 500 Time of Delivery: 05:59 Findings Description of Procedure: Patient was complete and pushing for 2-1/2 hours. She was pushing adequately. I assessed the patient and she was 0 to +1 station. She pushed for a total of 3 hours and I reassessed the patient and she was +2 station, position was LIAN, pelvis clinically adequate. Dewitt catheter was in place, estimated weight was less than 4500 g and epidural was adequate. I discussed with the patient and her partner risk benefits and alternatives to trial of vacuum-assisted vaginal delivery. Patient was exhausted and frustrated and pushing efforts were becoming less effective. She desired trial of vacuum. The vacuum was placed on the flexion point and vacuum created 550 mmHg. I pulled with 2 contractions with good Shashank. I pulled with the third contraction to almost . When the fourth contraction initiated no pulls were made and the vacuum was removed. There had been no pop offs. The head was then delivered spontaneously with maternal pushing efforts only. The shoulders did not deliver immediately. I had nursing extend the legs and flex them back in the shoulder still did not spontaneously deliver. I then reached in and tried to rotate the shoulders and I did rotate the shoulders and attempted to deliver both again the anterior and posterior shoulders without success. I then tried to push the anterior shoulder forward. Suprapubic was given. I then asked for suprapubic pressure to be stopped and then reached into an attempt to deliver the posterior arm but was unable to release it. At that point the posterior shoulder began to deliver and I was able to manually rotate the shoulders obliquely and deliver both shoulders and then the arms. The abdomen was delivered on the next maternal push. Total time a shoulder dystocia was 1 minute 58 seconds. The was attended to by the nursing staff and the supervisor functional testing and respiratory teams were called to assist. Apgars were not available at the time of this dictation. Pitocin was initiated for delivery of the placenta. The placenta delivered spontaneously intact. The cervix and vagina were intact. There is mild atony without hemorrhage of the uterus which responded to fundal massage and she was given 1 dose of IM Methergine. There was a 2 cm midline first-degree vaginal laceration that was oversewn with 2-0 Vicryl suture. Sponge and needle counts were correct. Presentation: LIAN Amniotic Membrane Rupture Type: Spontaneous Amniotic Fluid Description: Clear (terminal meconsium) Placental Delivery Description: Spontaneous Placenta Disposition: Sent to Pathology Cord Vessel Description: 3 Vessels Cord Entanglement: None Cord Gases: ABG and VBG A Gender: Female Delayed Cord Clamping: No Post Vaginal Delivery Medications Given After Delivery: IV Pitocin and IM Methergin Episiotomy Description: None Laceration: 1st degree (vaginal)
[2024-04-28] MEDS: Oxytocin 15 Units/NS 250ml 15 UNITS/250 ML IV.SOLN 83 UNITS IV (06:35)
[2024-04-28 06:37] LABS: Bedside Glucose 86 mg/dL (74-106)
[2024-04-28] MEDS: Ibuprofen 600 MG Tablet PO ×2 (06:43→16:41)
[2024-04-28] MEDS: Acetaminophen 500 MG Tablet 1000 MG PO ×2 (07:11→18:47)
[2024-04-28 08:13] LABS: Bedside Glucose 85 mg/dL (74-106)
[2024-04-28] MEDS: ARIPiprazole 5 MG Tablet PO (09:51)
[2024-04-28] MEDS: Fluoxetine HCl 40 MG CAPSULE PO (09:51)
[2024-04-28] MEDS: 0.9% Saline Lock 10 ML Syringe IV (10:28)
[2024-04-28] MEDS: Ondansetron 4 MG/2 ML Vial IV (10:28)
[2024-04-29 02:00] VITALS: BP 119/52; PULSE 83; RESP 16; TEMP 36.6; O2SAT 96
[2024-04-29 05:16] LABS: Absolute Lymphocyte Count 1.76 X10^3/uL (0.83-4.51); Absolute Neutrophil Count 10.5 X10^3/uL (2.0-7.7); Basophil# 0.03 X10^3/uL; Basophil% 0.2 % (0-1); Eosinophil# 0.09 X10^3/uL; Eosinophils% 0.7 % (0-5); Hematocrit 28.2 % (37-47); Hemoglobin 9.2 g/dL (12.0-15.0); Lymphocyte # 1.76 X10^3/ul (0.83-4.51); Mean Corp Hgb Conc 32.6 g/dL (32-36); Mean Corpuscular Hgb 27.8 pg (27.0-32.0); Mean Corpuscular Volume 85.2 fL (81-99); Mean Platelet Vol. 12.1 fl (6.2-12.0); Monocyte# 1.01 X10^3/uL; Monocyte% 7.5 % (0-10); NRBC Flagged by Analyzer 0 % (0-5); Neutrophil # 10.52 X10^3/uL (2.7-7.7); Platelet Count 136 K/mm3 (150-450); RBC Distribution Width CV 14.7 % (11.6-14.6); RBC Distribution Width SD 45.8 fl (35.1-43.9); Red Blood Count 3.31 M/mm3 (4.2-5.4); White Blood Count 13.5 K/mm3 (4.4-11.0)
[2024-04-29 05:29] LABS: Bedside Glucose 123 mg/dL (74-106)
[2024-04-29] MEDS: Ibuprofen 600 MG Tablet PO ×2 (07:59→15:49)
[2024-04-29] MEDS: Acetaminophen 500 MG Tablet 1000 MG PO (07:59)
[2024-04-29 08:00] VITALS: BP 114/68; PULSE 80; RESP 16; TEMP 36.7
[2024-04-29] MEDS: Senna/Docusate Sodium 1 Tablet PO (08:05)
--- NOTE | 2024-04-29 10:23 | PCM.PN.CNM ---
Subjective Subjective Patient seen at bedside. Denies any pain. Ambulating and voiding without difficulty. Lochia decreasing. remains in SCN. Patient is pumping and feeding via syringe. Objective Data Objective Data Vital Signs: Vital Signs Temp Pulse Resp BP Pulse Ox O2 Del Method 98.1 F 80 16 114/68 96 Room Air 04/29/24 08:00 04/29/24 08:00 04/29/24 08:00 04/29/24 08:00 04/29/24 02:00 04/29/24 02:00 Oxygen Delivery Method Room Air Weight: 187 lb Body Mass Index (BMI) 34.2 Intake & Output: Intake and Output for Last 24 Hours 04/27/24 04/28/24 04/29/24 23:59 23:59 23:59 Intake Total 1361.76 / 1361.76 2054. / 2054. Output Total 2049 / 2049 Balance 1361.76 / 1361.76 5.24 / 5.24 Lab / Micro Data Attestation: I reviewed the patient's lab results. 04/29/24 05:10 Labs: Laboratory Results - last 24 hr 04/29/24 05:07: POC Glucose 123 H 04/29/24 05:10: WBC 13.5 H, RBC 3.31 L, Hgb 9.2 L, Hct 28.2 L, MCV 85.2, MCH 27.8, MCHC 32.6, RDW Std Deviation 45.8 H, RDW Coeff of Shemar 14.7 H, Plt Count 136 L, MPV 12.1 H, Immature Gran % (Auto) 0.600, Neut % (Auto) 78.0 H, Lymph % (Auto) 13.0 L, Mora % (Auto) 7.5, Eos % (Auto) 0.7, Baso % (Auto) 0.2, Absolute Neuts (auto) 10.5 H, Absolute Lymphs (auto) 1.76, Nucleated RBC % 0 ROS Eyes Eyes: Denies blurry vision, change in vision or spots in vision ENT HEENT: Denies dizziness or headache(s) Cardiovascular Cardiovascular: Denies abdominal pain, chest pain or dyspnea Respiratory/Chest Respiratory/Chest: Denies cough, dyspnea, shortness of breath at rest or shortness of breath with exertion Gastrointestinal Gastrointestinal: Denies abdominal pain, diarrhea or vomiting Genitourinary Genitourinary: Denies change in urinary stream, difficulty urinating or dysuria Musculoskeletal Musculoskeletal: Reports none Integumentary Integumentary: Denies rash Neurologic Neurologic: Denies dizziness, headache(s), memory loss or weakness Physical Exam Const alert and no apparent distress General Appearance: cooperative and comfortable Exam Limitations: no limitations HEENT normocephalic Eyes General Eye: normal appearance of both eyes Neck full ROM General: normal visual inspection Chest Chest: symmetrical chest wall rise Resp normal respiratory effort and normal air movement Effort and Inspection: symmetric chest movement Auscultation: clear to auscultation bilaterally Cardio regular rate and regular rhythm GI normal to inspection, nondistended, normoactive bowel sounds Back/Spine normal ROM Extremity full ROM and no calf tenderness General Extremity: normal exam except as noted Skin no rashes or lesions noted Neuro oriented x3 Speech: speech normal Psych mental status grossly normal Thought Process: normal thought process Assessment & Plan (1) Single live : (2) Shoulder dystocia during labor and delivery: (3) Vacuum-assisted vaginal delivery: PLAN: Plan PPD 1 VAVD in [facility] Patient pumping Pain controlled Anticipate discharge tomorrow to [facility] status
[2024-04-29] MEDS: ARIPiprazole 5 MG Tablet PO (11:06)
[2024-04-29] MEDS: Fluoxetine HCl 40 MG CAPSULE PO (11:07)
[2024-04-29 14:00] VITALS: BP 113/75; PULSE 76; RESP 16; TEMP 37
[2024-04-29 21:15] VITALS: BP 122/84; PULSE 71; RESP 16; TEMP 36.2; O2SAT 99
[2024-04-30 02:00] VITALS: BP 100/59; PULSE 76; RESP 16; TEMP 36.6; O2SAT 98
[2024-04-30 10:00] VITALS: BP 113/67; PULSE 90; RESP 16; TEMP 36.5; O2SAT 98
[2024-04-30] MEDS: ARIPiprazole 5 MG Tablet PO (10:43)
[2024-04-30] MEDS: Fluoxetine HCl 40 MG CAPSULE PO (10:44)
--- NOTE | 2024-04-30 11:31 | PCM.PN.OB ---
Subjective Subjective Doing well per patient and nursing staff. Ambulating and taking PO without difficulty. Voiding and passing flatus. Pain controlled. , services for assistance. Denies headache, visual changes, chest pain, shortness of breath, leg pain or increased bleeding. Lochia normal. Objective Data Objective Data Vital Signs: Vital Signs Temp Pulse Resp BP Pulse Ox O2 Del Method 97.7 F L 90 16 113/67 98 Room Air 04/30/24 10:00 04/30/24 10:04/30/24 10:04/30/24 10:04/30/24 10:04/30/24 10:00 Oxygen Delivery Method Room Air Weight: 187 lb Body Mass Index (BMI) 34.2 Intake & Output: Intake and Output for Last 24 Hours 04/28/24 04/29/24 04/30/24 23:59 23:59 23:59 Intake Total Output Total 2049 Balance 5.24 / .24 Lab / Micro Data 04/29/24 05:10 ROS Constitutional Constitutional: Reports systems reviewed and no addt'l complaints, except as documented; Denies headache(s) Eyes Eyes: Denies acute decrease in peripheral vision, blurry vision or change in vision ENT HEENT: Reports systems reviewed and no addt'l complaints, except as documented Cardiovascular Cardiovascular: Denies chest pain or dizziness Respiratory/Chest Respiratory/Chest: Denies cough, dyspnea, dyspnea on exertion, shortness of breath at rest or shortness of breath with exertion Gastrointestinal Gastrointestinal: Denies abdominal pain, diarrhea, nausea or vomiting Genitourinary Genitourinary: Denies abdominal discomfort Musculoskeletal Musculoskeletal: Denies limited range of motion Integumentary Integumentary: Reports systems reviewed and no addt'l complaints, except as documented Neurologic Neurologic: Reports systems reviewed and no addt'l complaints, except as documented Psychiatric Psychiatric: Reports systems reviewed and no addt'l complaints, except as documented Endocrine Endocrinology: Reports systems reviewed and no addt'l complaints, except as documented Hematologic/Lymphatic Hematologic/Lymphatic: Reports systems reviewed and no addt'l complaints, except as documented Allergic/Immunologic Allergic/Immunologic: Reports systems reviewed and no addt'l complaints, except as documented Physical Exam Const alert and oriented x3 General Appearance: cooperative Orientation / Consciousness: awake, oriented to person, oriented to place and oriented to time Exam Limitations: no limitations HEENT normocephalic Head and Scalp: normal to inspection, normocephalic and atraumatic Face and Sinus: normal facial exam Eyes General Eye: normal appearance of both eyes Neck full ROM Chest Chest: symmetrical chest wall rise Resp normal respiratory effort and normal air movement Auscultation: clear to auscultation bilaterally Cardio regular rate, regular rhythm, S1 normal heart sound, S2 normal heart sound, no murmurs, no rub, no gallops and no clicks GI normal to inspection, nondistended, normoactive bowel sounds and non-tender appearance of the vagina normal Bladder / Kidney Exam: no CVA tenderness Back/Spine normal ROM Extremity normal to inspection and full ROM Skin no rashes or lesions noted Neuro oriented x3, CN's II-XII intact bilaterally and moves all extremities Sensorium / Orientation: awake, alert and oriented to person Motor Exam: clonus absent Deep Tendon Reflexes: Rt Patellar (L4): 2+ and Lt Patellar (L4): 2+ Assessment & Plan (1) Single live : (2) Shoulder dystocia during labor and delivery: (3) Vacuum-assisted vaginal delivery: (4) Bipolar 2 disorder: (5) Depression: (6) ADHD: PLAN: Plan 1) Routine PP care 2) Vitals stable 3) Pain management 4) D/C home 5) Follow up in 2 weeks and 6 weeks PP
--- NOTE | 2024-04-30 11:33 | DCINST_ITS ---
Discharge Instructions Diet Discharge Diet: No restrictions Activity Discharge Activity: Return to Normal Activity, May Drive, May Shower and May Take a Tub Bath May resume sexual activity in: 6 weeks Weight Bearing Status: Full weight bearing Dressing / Incision Call your doctor if you observe: Fever of 101 or Higher, Inability to urinate, Using more than 1 pad per hour, Shortness of breath, Chest pain, Increased palpitations (irregular heartbeat), Calf discomfort and Uncontrolled pain Follow Up Care Please Follow Up With: Ammy Hyde CNM When: 2 week virtual visit and 6 week visit Test Results: Test results from this visit will be discussed in further detail at your follow- up appointment, if applicable. Discharge Plan Admission Admit Date/Time: 04/27/24 16:14 Primary Reason for Your Visit: Vaginal Delivery Attending Provider: Poornima Liang Primary Care Provider: Care Physician,Natacha Primary Discharge Orders/Prescriptions Prescriptions: New acetaminophen 500 mg Tablet 1,000 mg PO Q6H PRN PRN (Reason: Pain 1-10 Or Fever) Qty: 0 0RF ibuprofen 600 mg Tablet 600 mg PO Q6H PRN PRN (Reason: Pain Score 1-10) Qty: 0 0RF Continued fluoxetine [Prozac] 40 mg PO DAILY aripiprazole 2 mg tablet 5 mg PO DAILY Patient Comments: TAKE 1 TABLET BY MOUTH EVERYDAY AT BEDTIME PN cmb#95-ferrous fumarate-FA [] 28 mg iron- 800 mcg tablet 1 tab PO DAILY ferrous sulfate [FeroSul] 325 mg (65 mg iron) tablet 325 mg PO DAILY Referrals / Follow Up: Care Physician,No Primary [Primary Care Provider] - Disposition Disposition (needs filled in before D/C Order can be placed): Home, Self Care
== END 2024-04-30 12:10 | disposition home or self-care (01) | DRG 560 ==
LOC: WPOUT 04-28 11:21 → WP 04-28 11:21
PROVIDERS: Admitting Provider Obstetrics & Gynecology; Referring Provider Obstetrics & Gynecology; Visit Provider Obstetrics & Gynecology
DX: O42.92 Full-term premature rupture of membranes, unspecified as to length of time between rupture and onset of labor (principal); Z37.0 Single live birth; O98.82 Other maternal infectious and parasitic diseases complicating childbirth; F31.81 Bipolar II disorder; O24.429 Gestational diabetes mellitus in childbirth, unspecified control; F17.290 Nicotine dependence, other tobacco product, uncomplicated; O62.2 Other uterine inertia; O77.0 Labor and delivery complicated by meconium in amniotic fluid; O70.0 First degree perineal laceration during delivery; O66.0 Obstructed labor due to shoulder dystocia; F90.9 Attention-deficit hyperactivity disorder, unspecified type; B95.1 Streptococcus, group B, as the cause of diseases classified elsewhere; O99.344 Other mental disorders complicating childbirth; O99.334 Smoking (tobacco) complicating childbirth; O99.02 Anemia complicating childbirth; Z88.0 Allergy status to penicillin; Z3A.39 39 weeks gestation of pregnancy; Z79.899 Other long term (current) drug therapy
CPT/HCPCS: 59025; 59050; 82962; 84112; 85025; 86780; 86850; 86900; 86901; 99221; J7120; A4216; G0378; J2405

== ENCOUNTER 2024-09-05 15:00 | Outpatient (RCR) | payer MEDICAID, SELFPAY ==
--- NOTE | 2024-07-25 18:26 | HP.PTEVAL_ITS ---
Patient's Visit Information Visit Information Visit Information: ESTRELLITA VEGA is a 24 year old F referred to Physical Therapy by Dr. Poornima Liang MD with a diagnosis of BLADDER SPASM. Date of Evaluation: 07/25/24 Physical Therapist: Ila Boone PT, Cert MDT Visit Plan Frequency: 1x/Week Duration: 2-4 Months Plan: PF THERAPY FOR STRENGTHENING, LENGTHENING/RELAXATION AND ENDURANCE TR AINING. URINARY URGE AND FREQUENCY EDUCATION. HEALTHY BLADDER HABIT EDUCATION. HEALTHY BACK EDUCATION/TRAINING. TRAINING IN COORDINATION OF PELVIC FLOOR MUSCULATURE WITH HIP AND CORE (TRANSVERSE ABDOMINUS) MUSCULATURE. CORE STRENGTHENING TAKING DIASTASIS RECTI INTO CONSIDERATION. STACIA LE ROM, STRETCHING AND STRENGTHENING. TRAINING IN ABDOMINAL CAVITY PRESSURE MGMT WITH ADL'S. POSTURE TRAINING. 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 OFF WORK CURRENTLY DUE TO RECENTLY HAVING A BABY. BABY IS CURRENTLY 3 MONTHS OLD - 04/28/24. PLANS TO RETURN TO WORK BEGINNING OF AUGUST 3 DAYS A WEEK OR APPROX 24 HRS A WEEK. Disability: NO Present symptoms: FREQUENT URINATION AND URINARY INCONTINENCE. DAILY. CURRENTLY WEARING PANTY LINERS. SEVERITY IS A FEW DROPS SOMETIMES WETTING UNDERWEAR BUT NOT OUTERWEAR. INTERMITTENT LOW BACK PAIN. PATIENT DENIES STACIA LE NUMBNESS AND TINGLING. Present since: AFTER DELIVERY OF DAUGHTER. Pain Scale: N/A. PATIENT DENIES PAIN. Is it getting better, worse or staying the same: STAYING THE SAME. Commenced as a result of: CHILDBIRTH. VAGINAL . Symptoms at onset: LAUGHING, COUGHING, SNEEZING, AND WALKING WOULD CAUSE UI THAT WOULD SOAK THROUGH OUTER CLOTHING Worse: SNEEZING, UP MOVING AROUND A LOT, WAITING TOO LONG TO URINATE/TRYING TO PRLONG URINATION. Better: NOTHING. IT'S NOT BAD IT WAS BUT IT'S ANNOYING. Previous history/Previous treatment: HAD A UTI A MONTH AGO AND 2 UTI'S DURING . NO UTI'S BEFORE . NO BLADDER OR PELVIC PROBLEMS BEFORE . Gestational diabetes dx'd during - diet controlled and no bedrest prescribed. Treatment this episode: PATIENT DENIES HAVING ANY TREATMENT FOR UI. Gait: NORMAL How long can you delay the need to urinate: 10 MINUTES Prolapse (Falling out feeling): NO Frequency of Urination: 2-3 TIMES AT NIGHT. URINATING ABOUT EVERY 30 MINUTES DURING THE DAY. Ability to stop urine flow: YES Ability to initiate urine stream: YES. NO DIFFICULTY. Dyspareunia: NO Bowel Incontinence: NO Accidents: NO Unexplained weight loss: NO Imaging: NO PMH/Recent major surgery: UNREMARKABLE Objective Objective: Sitting/Standing Posture: SLOUCHED IN SITTING. FAIR IN STANING. NORMAL LUMBAR LORDOSIS. NO RELEVANT LATERAL LUMBAR SHIFT. Active Correction of posture: ABLE TO FULLY CORRECT. DOES NOT MAINTAIN. Other Observations: INDEP GAIT AND TRANSFERS Sensory deficit: STACIA LE LIGHT TOUCH SENSATION GROSSLY INTACT AND SYMMETRICAL ROM deficit: TIGHT STACIA LE HS'S, HIP ER'S AND CALVES. Motor deficit: STACIA LE'S GROSSLY 5/5 EXCEPT HIPS 4/5. PELVIC FLOOR WITH INTERNAL MANUAL VAGINAL TESTING IS 4/5 X 5 SEC X 5 REPS. Dural Signs: NEGATIVE STACIA LE'S. Lumbar mvmt loss: flex - NIL ext - NIL R SG - NIL L SG - NIL PATIENT DENIES LOW BACK PAIN WITH LUMBAR ROM TESTING. Core strength: FAIR. PATIENT HAS 1 FINGER WIDTH DIASTASIS RECTI EXTENDING APPROX 2 ABOVE AND 2 BELOW NAVEL. Palpation: PATIENT DENIES PAIN WITH INTERNAL MANUAL VAGINAL PALPATION OF PELVIC FLOOR. NO PALPABLE TRIGGER POINTS. NO ACUTE LUMBAR OR HIP TENDERNESS BUT PATIENT REPORTS INTERMITTENT LOW BACK PAIN. TREATMENT: DIASTASIS RECTI EDUCATION, POSTURE TRAINING AND HEP INST. Goals Goal 1:: DECREASE URINARY LEAKAGE EPISODES TO ONE OR LESS PER DAY Goal Time Frame: 6-8 Weeks Goal 2:: ABOLISH LBP Goal Time Frame: 4-6 Weeks Goal 3:: PATIENT WILL DEMONSTRATE/COMMUNICATE 10 CONSISTENT AND CONSECUTIVE 10 SECOND PELVIC FLOOR MUSCLE CONTRACTIONS TO DEMONSTRATE IMPROVED PELVIC FLOOR ENDURANCE. Goal Time Frame: 8-12 Weeks Goal 4:: DEVELOP HEALTHY FLUID INTAKE HABITS WITH FLUID INTAKE OF ? BODY WEIGHT IN OUNCES PER DAY AND 2/3 BEING WATER. Goal Time Frame: 2-4 Weeks Goal 5:: NORMALIZE VOIDING FREQUENCEY TO EVERY 3-4 HOURS. Goal Time Frame: 4-6 Weeks Goal 6:: PATIENT WILL BE INDEP WITH A HEP/HOME INSTRUCTIONS FOR CONTINUED IMPROVEMENT ONCE FORMAL PHYSICAL THERAPY CONCLUDES. Goal Time Frame: 8-12 Weeks Rehabilitation Potential Physical Therapy Diagnosis: MIXED INCONTINENCE AND OAB WITH DIASTASIS RECTI, LBP, CORE WEAKNESS AND LE STIFFNESS. Rehabilitation Potential: Good Anticipated Interventions Patient/Client Instruction: Educate patient on: Condition, Plan of Care and Risk Factors For the Purpose of:: To improve self management Therapeutic Exercise to Include: Strength training, Endurance training, Body mechanics, Postural training, Flexibilty training and Neuromotor development For the Purpose of:: To decrease pain, To increase ROM, To improve muscle performance and motor function, To increase tolerance to activity/condition/position, To improve ability of physical actions for home/community/work/leisure, To increase flexibility/ROM, To improve endurance and To improve self management Text: Thank you for the opportunity to evaluate your patient. For Medicare and Medicare HMO plans, please review the plan of care and approve it. It will need to be FAXED BACK to us at [phone] for Medicare purposes. For Medicare only, by signing this I certify the plan of care. Please let me know if there are questions or concerns regarding this plan of care. Physician Signature: Date:
--- NOTE | 2024-09-26 14:39 | HP.PTDCNRP_ITS ---
Patient Information Patient Information: ESTRELLITA VEGA was seen in my office for initial evaluation on 07/25/24. The following Plan of Care was established for this patient: POC Established Initial Frequency: 1x/Week Initial Duration: 2-4 Months Anticipated Interventions Patient/Client Instruction: Educate patient on: Condition, Plan of Care and Risk Factors For the Purpose of:: To improve self management Therapeutic Exercise to Include: Strength training, Endurance training, Body mechanics, Postural training, Flexibilty training and Neuromotor development For the Purpose of:: To decrease pain, To increase ROM, To improve muscle performance and motor function, To increase tolerance to activity/condition/posi tion, To improve ability of physical actions for home/community/work/leisure, To increase flexibility/ROM, To improve endurance and To improve self management Last Seen Last Seen: This patient was last seen in our office 09/05/24. Pertinent comments regarding their Physical therapy will appear below: It has been my pleasure to see this patient for a total of 3 visits. This patient has not returned to Physical Therapy for more visits and is appropriate to return to MD for further follow-up as needed. At this point I will be discontinuing this patient from physical therapy. I would be happy to see this patient again in the future if found appropriate by the physician. Thank you! Ila Boone, PT, Cert MDT
== END 2024-09-05 19:00 | disposition home or self-care (01) ==
LOC: PT 15:00
PROVIDERS: Referring Provider Obstetrics & Gynecology; Visit Provider Obstetrics & Gynecology
DX: M62.08 Separation of muscle (nontraumatic), other site (principal); N32.89 Other specified disorders of bladder
CPT/HCPCS: 97162; 97530